=== PATIENT | female | born 1965 | race African-American/Black ===

== ENCOUNTER 2020-07-27 15:48 | Inpatient (IN) | payer OTHER ==
[~2020-07-27] VITALS: Ht 167.6 cm; Wt 94.3 kg
[2020-07-27] MEDS ORDERED: ACET-2605 PO (16:53)
[2020-07-27] MEDS ORDERED: DOCU-141 PO (16:55)
[2020-07-27] MEDS ORDERED: ENOX40DI SQ (16:57)
[2020-07-27] MEDS ORDERED: OXYC5TAB3 PO (17:00)
--- NOTE | 2020-07-27 18:24 | NUR ---
Patient is alert, oriented x4, no sob, resp even nonlabored,skin warm and dry to touch, status post left tibial ORIF, incision site is covered with dressing, left leg is in brace, noted with swelling, non weight bearing on left leg, history of seizures, last seizure in oct, 2019, patient stated she is able to feel aura before seizures. dr amhadi made aware about admission and to recon meds.
[2020-07-27] MEDS: OXYCODONE HCL 5 MG TABLET PO PRN (20:07)
[2020-07-27] MEDS ORDERED: OXYCODONE HCL 5 MG TABLET PO PRN (20:15)
[2020-07-27] MEDS ORDERED: MIRALAX 17 GM POWD.PACK PO PRN (20:15)
[2020-07-27 20:36] VITALS: BP 125/63
[2020-07-28 04:55] VITALS: BP 135/77
--- NOTE | 2020-07-28 06:36 | NUR ---
AxOx4, no acute distress noted. VSS on RA, no SOB noted C/O 5/10 pain in left legt, administered Oxyir PRN, effective. Assisted pt to bedside commode x3. Needs attended too promptly, kept comfortable. Left leg in brace, dressing intact, noted with redness around incision site and swelling, ice applied. Safety measure maintained. will continue to monitor.
[2020-07-28 06:56] LABS: BASOPHILS % (AUTO) 0.4 % (0.0-2.0); EOSINOPHILS # (AUTO) 0.1 K/uL (0.0-0.7); EOSINOPHILS % (AUTO) 1.1 % (0.0-7.0); HEMATOCRIT 31.1 % (31.2-41.9); HEMOGLOBIN 10.5 g/dL (10.9-14.3); LYMPHOCYTES # (AUTO) 2.6 K/uL (20.0-40.0); MEAN CORPUSCULAR HEMOGLOBIN 28.9 uug (24.7-32.8); MEAN CORPUSCULAR HGB CONC 34 g/dL (32.3-35.6); MEAN CORPUSCULAR VOLUME 85.3 fL (75.5-95.3); MONOCYTES # (AUTO) 0.4 K/uL (2.0-10.0); MONOCYTES % (AUTO) 6.2 % (0.0-11.0); NEUTROPHILS # (AUTO) 3.4 K/uL (1.8-8.9); NEUTROPHILS % (AUTO) 52.3 % (38.5-71.5); PLATELET COUNT (AUTO) 301 K/uL (179-408); RED BLOOD CELL COUNT(AUTO) 3.65 MIL/uL (3.63-4.92); WHITE BLOOD COUNT (AUTO) 6.6 K/uL (3.8-11.8)
[2020-07-28 07:26] LABS: THYROID STIMULATING HORMONE 1.664 mIU/mL (0.358-3.740)
[2020-07-28 07:38] LABS: BILIRUBIN,TOTAL 0.5 mg/dL (0.2-1.0); CREATININE 0.9 mg/dL (0.6-1.3); MAGNESIUM 1.9 mg/dL (1.8-2.4); PHOSPHOROUS 4.5 mg/dL (2.5-4.9); TOTAL PROTEIN, SERUM 7.6 g/dL (6.4-8.2)
[2020-07-28 07:43] VITALS: BP 119/64
[2020-07-28] MEDS: TURMERIC ROOT EXTRACT PO SCH (10:02)
[2020-07-28] MEDS: HYALURONIC ACID PO SCH (10:02)
[2020-07-28] MEDS: SAW PALMETTO EXTRACT PO SCH (10:03)
[2020-07-28] MEDS: DOCUSATE SODIUM 100 MG CAPSULE PO SCH ×2 (10:03→17:51)
[2020-07-28] MEDS: ENOXAPARIN SODIUM 40 MG/0.4 ML DISP.SYRIN SQ SCH (10:08)
[2020-07-28] MEDS: OXYCODONE HCL 5 MG TABLET PO PRN ×2 (11:06→18:23)
[2020-07-28 14:54] VITALS: BP 125/72
[2020-07-28 20:00] VITALS: BP 131/75
[2020-07-29] MEDS: ACETAMINOPHEN 325 MG TABLET PO PRN ×2 (00:17→21:52)
[2020-07-29 04:00] VITALS: BP 113/65
[2020-07-29 08:08] VITALS: BP 116/71
[2020-07-29] MEDS: DOCUSATE SODIUM 100 MG CAPSULE PO SCH ×2 (08:48→16:50)
[2020-07-29] MEDS: SAW PALMETTO EXTRACT PO SCH (08:48)
[2020-07-29] MEDS: HYALURONIC ACID PO SCH (08:48)
[2020-07-29] MEDS: TURMERIC ROOT EXTRACT PO SCH (08:48)
[2020-07-29] MEDS: ENOXAPARIN SODIUM 40 MG/0.4 ML DISP.SYRIN SQ SCH (08:54)
[2020-07-29] MEDS: OXYCODONE HCL 5 MG TABLET PO PRN (13:39)
[2020-07-29 20:15] VITALS: BP 128/77
[2020-07-30 04:00] VITALS: BP 137/81
--- NOTE | 2020-07-30 07:30 | NUR ---
Received pt in bed, awake. A&Ox4, able to verbalize needs. No SOB, no s/s of acute distress noted. Pt c/o L tibia pain, per pt wanted to wait until therapy before taking medication. Left leg in brace, dressing intact. Bed low and in locked position, safety measures and fall precautions in place. Belongings and call light within reach. Will continue to monitor.
[2020-07-30 08:00] VITALS: BP 128/70
[2020-07-30] MEDS: TURMERIC ROOT EXTRACT PO SCH (09:33)
[2020-07-30] MEDS: SAW PALMETTO EXTRACT PO SCH (09:33)
[2020-07-30] MEDS: HYALURONIC ACID PO SCH (09:33)
[2020-07-30] MEDS: DOCUSATE SODIUM 100 MG CAPSULE PO SCH ×2 (09:33→16:53)
[2020-07-30] MEDS: ENOXAPARIN SODIUM 40 MG/0.4 ML DISP.SYRIN SQ SCH (09:35)
[2020-07-30] MEDS: OXYCODONE HCL 5 MG TABLET PO PRN ×2 (13:42→21:13)
[2020-07-30 16:00] VITALS: BP 129/78
--- NOTE | 2020-07-30 19:30 | NUR ---
EOSS: Pt sitting in chair, awake and alert. No s/s of acute distress, no complaints of pain/discomfort at this time. Pt able to verbalize needs throughout shift, needs met promptly. Medications and care administered per order, no a/r noted. Pt c/o L leg pain before PT, Oxyir PRN administered per order, effective. Pt tolerated PT well. Safety measures and fall precautions in place. Belongings and call light within reach. Will endorse care to assistant shift supervisor.
[2020-07-30 20:00] VITALS: BP 119/68
[2020-07-31 04:00] VITALS: BP 126/71
--- NOTE | 2020-07-31 04:17 | NUR ---
Received pt at the beginning of shift sitting in the wheelchair. AAO x4. No acute distress noted. Pt slept mostly throughout the shift. Medicated for pain. All needs attended to promptly. Safety measures maintained. Call light and personal items within reach. Will continue to monitor.
[2020-07-31 08:00] VITALS: BP 110/68
[2020-07-31] MEDS: SAW PALMETTO EXTRACT PO SCH (08:54)
[2020-07-31] MEDS: HYALURONIC ACID PO SCH (08:54)
[2020-07-31] MEDS: DOCUSATE SODIUM 100 MG CAPSULE PO SCH ×2 (08:55→18:05)
[2020-07-31] MEDS: TURMERIC ROOT EXTRACT PO SCH (08:55)
[2020-07-31] MEDS: ENOXAPARIN SODIUM 40 MG/0.4 ML DISP.SYRIN SQ SCH (08:56)
[2020-07-31] MEDS: OXYCODONE HCL 5 MG TABLET PO PRN (14:07)
[2020-07-31 16:00] VITALS: BP 126/59
[2020-07-31 20:24] VITALS: BP 131/78
[2020-08-01] MEDS: ACETAMINOPHEN 325 MG TABLET PO PRN (03:16)
[2020-08-01 04:52] VITALS: BP 126/80
--- NOTE | 2020-08-01 06:38 | NUR ---
Shift End Report: Slept well. Medicataed once for left leg pain with relief. No further complaint presented. All needs attended and met. Continue plan of care.
[2020-08-01 07:30] VITALS: BP 153/64
[2020-08-01] MEDS: SAW PALMETTO EXTRACT PO SCH (09:00)
[2020-08-01] MEDS: DOCUSATE SODIUM 100 MG CAPSULE PO SCH ×2 (09:08→16:50)
[2020-08-01] MEDS: ENOXAPARIN SODIUM 40 MG/0.4 ML DISP.SYRIN SQ SCH (09:10)
[2020-08-01] MEDS: FERROUS SULFATE 325 MG TABEC PO SCH (09:11)
[2020-08-01] MEDS: HYALURONIC ACID PO SCH (09:11)
[2020-08-01] MEDS: TURMERIC ROOT EXTRACT PO SCH (09:11)
[2020-08-01] MEDS: OXYCODONE HCL 5 MG TABLET PO PRN ×2 (10:30→21:23)
[2020-08-01 15:09] VITALS: BP 131/74
[2020-08-01 20:03] VITALS: BP 125/78
[2020-08-01 21:49] LABS: *OCCULT BLOOD STOOL NEGATIVE (NEGATIVE)
[2020-08-02 04:53] VITALS: BP 128/71
[2020-08-02 08:00] VITALS: BP 121/82
[2020-08-02] MEDS: HYALURONIC ACID PO SCH (09:08)
[2020-08-02] MEDS: FERROUS SULFATE 325 MG TABEC PO SCH (09:08)
[2020-08-02] MEDS: DOCUSATE SODIUM 100 MG CAPSULE PO SCH ×2 (09:08→17:22)
[2020-08-02] MEDS: TURMERIC ROOT EXTRACT PO SCH (09:08)
[2020-08-02] MEDS: ENOXAPARIN SODIUM 40 MG/0.4 ML DISP.SYRIN SQ SCH (09:09)
[2020-08-02] MEDS: OXYCODONE HCL 5 MG TABLET PO PRN (14:11)
[2020-08-02 16:00] VITALS: BP 124/71
[2020-08-02 20:00] VITALS: BP 118/76
--- NOTE | 2020-08-03 00:32 | NUR ---
AAOx4. Admitted for left tibial ORIF. LLE dressing with knee immobilizer intact. VSS. Denies any pain nor any discomfort. Continent of bowel and bladder. Needs attended. OOB to the BR with walker. NWB on LLE. Will monitor patient.
[2020-08-03 04:00] VITALS: BP 117/66
--- NOTE | 2020-08-03 06:23 | NUR ---
Entered a wrong critical value of K 2.8 to this patient.
--- NOTE | 2020-08-03 06:57 | NUR ---
End of shift notes: Slept @ long intervals. OOB to the BR with walker. Voiding freely. Needs attended. Denies any pain nor any discomfort. Quiet night.
--- NOTE | 2020-08-03 07:40 | NUR ---
Received PT in bed, awake AO X 4. Patient is cooperative and pleasant. Makes needs known to staff. No acute distress or SOB noted. All pertinent information given during report. No complain noted at this time. Continue plan of care. Safety measures provided, call light within reach, bed low and lock. Will continue to monitor.
[2020-08-03 08:00] VITALS: BP 117/87
[2020-08-03] MEDS: TURMERIC ROOT EXTRACT PO SCH (08:55)
[2020-08-03] MEDS: DOCUSATE SODIUM 100 MG CAPSULE PO SCH ×2 (08:56→16:30)
[2020-08-03] MEDS: HYALURONIC ACID PO SCH (08:56)
[2020-08-03] MEDS: FERROUS SULFATE 325 MG TABEC PO SCH (08:56)
[2020-08-03] MEDS: ENOXAPARIN SODIUM 40 MG/0.4 ML DISP.SYRIN SQ SCH (08:58)
[2020-08-03] MEDS: OXYCODONE HCL 5 MG TABLET PO PRN (14:11)
[2020-08-03 14:30] VITALS: BP 113/66
--- NOTE | 2020-08-03 18:11 | NUR ---
PT in bed, awake AO X 4. Patient is cooperative and pleasant. Makes needs known to staff. No acute distress or SOB noted. Pt participated in physical therapy and tolerated it well. PT is independent and able to provide self care. No complain noted at this time. Continue plan of care. Safety measures provided, call light within reach, bed low and lock. Will endorse to kristine shift nurse
[2020-08-03 20:06] VITALS: BP 131/74
--- NOTE | 2020-08-03 21:58 | NUR ---
aaox4. All needs attended. Compliant with meds and care. No acute distress noted. VSS. Left knee dressing clean dry and intact. LLE immobilizer on. Denies any pain nor any discomfort. Tolerated CPM to LLE. Voiding well. Will monitor patient.
[2020-08-04 04:09] VITALS: BP 132/83
--- NOTE | 2020-08-04 07:32 | NUR ---
Received PT in wheelchair in the hallway, awake AO X 4. Patient is cooperative and pleasant. Makes needs known to staff. No acute distress or SOB noted. All pertinent information given during report. No complain noted at this time. Continue plan of care. Safety measures provided, call light within reach, bed low and lock. Will continue to monitor.
[2020-08-04] MEDS: ENOXAPARIN SODIUM 40 MG/0.4 ML DISP.SYRIN SQ SCH (08:29)
[2020-08-04] MEDS: DOCUSATE SODIUM 100 MG CAPSULE PO SCH ×2 (08:30→16:34)
[2020-08-04] MEDS: FERROUS SULFATE 325 MG TABEC PO SCH (08:30)
[2020-08-04] MEDS: HYALURONIC ACID PO SCH (08:34)
[2020-08-04] MEDS: TURMERIC ROOT EXTRACT PO SCH (08:34)
[2020-08-04 12:00] VITALS: BP 106/89
[2020-08-04] MEDS: OXYCODONE HCL 5 MG TABLET PO PRN (13:32)
--- NOTE | 2020-08-04 17:40 | NUR ---
Scheduled [employer]er and return for [facility]'s follow up appointment RE: Post Op Knee Surgery. Date: 08/07/2020 Time: 644 Trip #: [id number] Return #: [id number]
--- NOTE | 2020-08-04 18:14 | NUR ---
PT in bed, awake AO X 4. Patient is cooperative and pleasant. Makes needs known to staff. No acute distress or SOB noted. All pertinent information given during report. No complain noted at this time. Tolerated all therapy activities for the day. PT is aware of transportation for Friday's appointment. PT stated that they are happy and thankful. Continue plan of care. Safety measures provided, call light within reach, bed low and lock. Will endorse to night shift supervisor nurse
[2020-08-04] MEDS: ACETAMINOPHEN 325 MG TABLET PO PRN (20:09)
[2020-08-04 20:31] VITALS: BP 128/78
[2020-08-05 05:41] VITALS: BP 127/80
[2020-08-05] MEDS: OXYCODONE HCL 5 MG TABLET PO PRN ×3 (06:03→12:48)
[2020-08-05 08:00] VITALS: BP 127/81
[2020-08-05] MEDS: DOCUSATE SODIUM 100 MG CAPSULE PO SCH ×2 (09:01→17:31)
[2020-08-05] MEDS: FERROUS SULFATE 325 MG TABEC PO SCH (09:01)
[2020-08-05] MEDS: HYALURONIC ACID PO SCH (09:02)
[2020-08-05] MEDS: TURMERIC ROOT EXTRACT PO SCH (09:02)
[2020-08-05] MEDS: ENOXAPARIN SODIUM 40 MG/0.4 ML DISP.SYRIN SQ SCH (09:05)
[2020-08-05 15:45] VITALS: BP 124/71
--- NOTE | 2020-08-05 18:23 | NUR ---
Patient AOX4. cooperative and pleasant. able to make needs known. No acute distress or SOB noted. No complain noted on this shift. Continue plan of care. Left knee dressing clean, intact and dry. LLE immobilizer on. no pain noted. Tolerated CPM to LLE. Voiding well. Safety measures provided, call light within reach, bed low and lock. Will continue to monitor
[2020-08-05] MEDS: ACETAMINOPHEN 325 MG TABLET PO PRN (20:27)
[2020-08-05 21:23] VITALS: BP 129/78
--- NOTE | 2020-08-05 22:30 | NUR ---
AxOx4, no acute distress noted. VSS on RA, no SOB noted C/O 4/10 pain in left leg, administered TYLENOL PRN, per pt request, effective. Needs attended too promptly, kept comfortable. Left leg in brace, dressing intact. Safety measure maintained. all personal items within pt reach. will continue to monitor.
[2020-08-06 05:28] VITALS: BP 135/84
[2020-08-06 08:00] VITALS: BP 119/72
[2020-08-06] MEDS: FERROUS SULFATE 325 MG TABEC PO SCH (09:07)
[2020-08-06] MEDS: DOCUSATE SODIUM 100 MG CAPSULE PO SCH ×2 (09:07→16:37)
[2020-08-06] MEDS: HYALURONIC ACID PO SCH (09:08)
[2020-08-06] MEDS: TURMERIC ROOT EXTRACT PO SCH (09:08)
[2020-08-06] MEDS: ENOXAPARIN SODIUM 40 MG/0.4 ML DISP.SYRIN SQ SCH (09:55)
[2020-08-06] MEDS: OXYCODONE HCL 5 MG TABLET PO PRN ×3 (13:21→13:45)
--- NOTE | 2020-08-06 13:25 | NUR ---
Patient requesting pain med before scheduled PT, pain 8/10. Will monitor and reassess
[2020-08-06 17:09] VITALS: BP 130/75
--- NOTE | 2020-08-06 18:55 | NUR ---
A&Ox4, vs stable, on RA. No signs of distress, pt resting in bed with laptop. Belongings and call light in reach.
[2020-08-06 20:09] VITALS: BP 123/85
[2020-08-06] MEDS: ACETAMINOPHEN 325 MG TABLET PO PRN (21:59)
[2020-08-07 04:36] VITALS: BP 116/74
[2020-08-07] MEDS: ACETAMINOPHEN 325 MG TABLET PO PRN ×2 (06:29→22:19)
--- NOTE | 2020-08-07 06:47 | NUR ---
End of Shift: Patient is AOx4, no acute distress noted, VS WNL. Patient slept through the night. Bed is low & locked, side rails are up x2, call light within reach. Patient will be picked up by Em around 6:45am and taken to [facility] for her follow up appt with her surgeon. After the appt the patient will return to [facility] via [facility]. Order for a pt pass was input into chart. Will endorse to the AM shift nurse.
--- NOTE | 2020-08-07 07:22 | NUR ---
Received pt on gurdivide with [facility] staff. Pt being transported by [facility] to [facility], pass in chart. Pt in no acute distress, no SOB. Will await pt's return to unit.
[2020-08-07] MEDS: FERROUS SULFATE 325 MG TABEC PO SCH (11:05)
[2020-08-07] MEDS: DOCUSATE SODIUM 100 MG CAPSULE PO SCH ×2 (11:05→17:06)
--- NOTE | 2020-08-07 11:05 | NUR ---
Pt back on unit from [facility]. A&Ox4, able to verbalize needs. No acute distress, no complaints of pain/discomfort. On RA, no SOB. VSS. 0900 medications delayed d/t pt being off unit, administered per order upon pt's return. Safety measures and fall precautions in place. Will continue to monitor.
[2020-08-07] MEDS: TURMERIC ROOT EXTRACT PO SCH (11:06)
[2020-08-07] MEDS: HYALURONIC ACID PO SCH (11:06)
[2020-08-07] MEDS: ENOXAPARIN SODIUM 40 MG/0.4 ML DISP.SYRIN SQ SCH (11:07)
[2020-08-07] MEDS: OXYCODONE HCL 5 MG TABLET PO PRN (13:30)
[2020-08-07 15:11] VITALS: BP 122/76
--- NOTE | 2020-08-07 19:02 | NUR ---
EOSS: Pt in bed, awake. No s/s of acute distress, no complaints at this time. Needs met promptly during shift. Medications and care administered per order, no a/r noted. Pt c/o L leg pain before PT, Oxyir PRN administered per order, effective. Safety measures in place. Belongings and call light within reach. Will endorse care to pick pack worker.
[2020-08-07 20:45] VITALS: BP 136/80
--- NOTE | 2020-08-07 23:00 | NUR ---
AxOx4, no acute distress noted. VSS on RA, no SOB noted C/O 4/10 pain in left leg, administered TYLENOL PRN, per pt request, effective. Needs attended too promptly, kept comfortable. Left leg incision site open to air with steri strips intact. Safety measure maintained. All personal items within pt reach. will continue to monitor.
[2020-08-08 04:30] VITALS: BP 118/63
[2020-08-08] MEDS: ACETAMINOPHEN 325 MG TABLET PO PRN ×2 (06:14→23:33)
--- NOTE | 2020-08-08 07:30 | NUR ---
Received pt awake, alert, able to verbalize needs. No acute distress noted, no complaints at this time. Surgical incision on LLE open to air, steri strips intact. Safety measures in place. Belongings and call light within reach. Will continue to monitor.
[2020-08-08 07:56] VITALS: BP 110/66
[2020-08-08 08:37] LABS: *BILIRUBIN,URIN NEGATIVE (NEGATIVE); *BLOOD, URINE NEGATIVE (NEGATIVE); *CLARITY,URINE SLIGHTLY CLOUDY (CLEAR); *COLOR,URINE YELLOW (YELLOW); *KETONES,URINE NEGATIVE (NEGATIVE); *UROBILINOGEN,URINE 0.2 E.U./dl (NORMAL); LEUKOCYTE ESTERASE ,URINE NEGATIVE (NEGATIVE); NITRITE, URINE NEGATIVE (NEGATIVE); UGLUCOSE NEGATIVE (NEGATIVE)
[2020-08-08] MEDS: FERROUS SULFATE 325 MG TABEC PO SCH (09:30)
[2020-08-08] MEDS: DOCUSATE SODIUM 100 MG CAPSULE PO SCH ×2 (09:30→17:03)
[2020-08-08] MEDS: HYALURONIC ACID PO SCH (09:31)
[2020-08-08] MEDS: TURMERIC ROOT EXTRACT PO SCH (09:31)
[2020-08-08] MEDS: ENOXAPARIN SODIUM 40 MG/0.4 ML DISP.SYRIN SQ SCH (09:32)
[2020-08-08 12:21] LABS: CREATININE 0.9 mg/dL (0.6-1.3); POTASSIUM 3.8 mmol/L (3.5-5.1)
[2020-08-08 12:22] LABS: BASOPHILS % (AUTO) 0.7 % (0.0-2.0); EOSINOPHILS # (AUTO) 0.1 K/uL (0.0-0.7); EOSINOPHILS % (AUTO) 1.3 % (0.0-7.0); HEMATOCRIT 35.3 % (31.2-41.9); HEMOGLOBIN 11.8 g/dL (10.9-14.3); LYMPHOCYTES % (AUTO) 37.7 % (20.5-51.5); MEAN CORPUSCULAR HEMOGLOBIN 28.7 uug (24.7-32.8); MEAN CORPUSCULAR HGB CONC 33 g/dL (32.3-35.6); MEAN CORPUSCULAR VOLUME 86.1 fL (75.5-95.3); MONOCYTES # (AUTO) 0.4 K/uL (2.0-10.0); MONOCYTES % (AUTO) 7.7 % (0.0-11.0); NEUTROPHILS # (AUTO) 2.8 K/uL (1.8-8.9); NEUTROPHILS % (AUTO) 52.6 % (38.5-71.5); PLATELET COUNT (AUTO) 289 K/uL (179-408); WHITE BLOOD COUNT (AUTO) 5.3 K/uL (3.8-11.8)
[2020-08-08 12:41] LABS: BACTERIA,URINE NONE SEEN /HPF (NONE SEEN); RBC,URINE NONE SEEN /HPF (0-3); SQUAMOUS EPITHELIAL CELL,UR FEW /HPF (NONE SEEN); WBC,URINE NONE SEEN /HPF (0-3)
[2020-08-08] MEDS: OXYCODONE HCL 5 MG TABLET PO PRN (13:56)
[2020-08-08 14:33] VITALS: BP 137/71
--- NOTE | 2020-08-08 19:30 | NUR ---
EOSS: Pt awake, alert, no acute distress, no complaints. Medications and care administered per order, no a/r noted. Safety measures in place. Belongings and call light within reach. Will endorse care to night nurse.
[2020-08-08 20:00] VITALS: BP 134/77
--- NOTE | 2020-08-09 | NUR ---
AxOx4, no acute distress noted. VSS on RA, no SOB noted C/O mild 4/10 pain in left leg, administered TYLENOL PRN, per pt request, effective. Needs attended too promptly, kept comfortable. Left leg incision site open to air with steri strips intact. Safety measure maintained. All personal items within pt reach. will continue to monitor.
[2020-08-09 04:00] VITALS: BP 124/69
--- NOTE | 2020-08-09 07:40 | NUR ---
Pt recieved in bed, no acute distress. No complaints able to make needs known. sterri strips intact. AOx4 on room air, saftey measures in place. call light in reach. Will continue to monitor.
[2020-08-09] MEDS: ACETAMINOPHEN 325 MG TABLET PO PRN ×2 (07:57→21:33)
[2020-08-09 08:00] VITALS: BP 127/84
[2020-08-09] MEDS: FERROUS SULFATE 325 MG TABEC PO SCH (09:20)
[2020-08-09] MEDS: DOCUSATE SODIUM 100 MG CAPSULE PO SCH ×2 (09:20→17:27)
[2020-08-09] MEDS: HYALURONIC ACID PO SCH (09:20)
[2020-08-09] MEDS: TURMERIC ROOT EXTRACT PO SCH (09:20)
[2020-08-09] MEDS: ENOXAPARIN SODIUM 40 MG/0.4 ML DISP.SYRIN SQ SCH (09:21)
[2020-08-09] MEDS: OXYCODONE HCL 5 MG TABLET PO PRN (11:16)
[2020-08-09 16:23] VITALS: BP 128/76
--- NOTE | 2020-08-09 18:34 | NUR ---
ELADIA Pt is left in bed comfortable. Routine meds given. Pt was complaining about seeing blood in her stool, was notified. Pts needs were met. On room air, safety measures in place. call light in reach, will Endorse to oncoming nurse Addendum: 08/09/20 at 1852 by MALKA PISANO LVN ordered to hold [facility] am
--- NOTE | 2020-08-09 19:40 | NUR ---
Awake, sitting on top of her bed. Calm, jolly, watching TV at this time. Denies any pain/discomforts. Left leg brace not in used. Steri-strips on affected leg dry and intact. Safety measures and fall prevention maintained. Continue care as planned.
[2020-08-09 20:00] VITALS: BP 115/69
[2020-08-10 04:00] VITALS: BP 118/70
--- NOTE | 2020-08-10 06:47 | NUR ---
Shift End Report: Slept well. Medicated once with Tylenol for discomfort, effective. No further complaint presented. Continue current rehab plan of care.
[2020-08-10] MEDS: ACETAMINOPHEN 325 MG TABLET PO PRN (08:07)
[2020-08-10] MEDS: TURMERIC ROOT EXTRACT PO SCH (08:07)
[2020-08-10] MEDS: DOCUSATE SODIUM 100 MG CAPSULE PO SCH ×2 (08:07→17:03)
[2020-08-10] MEDS: FERROUS SULFATE 325 MG TABEC PO SCH (08:07)
[2020-08-10] MEDS: HYALURONIC ACID PO SCH (08:07)
[2020-08-10 08:51] VITALS: BP 121/77
[2020-08-10] MEDS: OXYCODONE HCL 5 MG TABLET PO PRN (14:38)
--- NOTE | 2020-08-10 16:50 | NUR ---
PATIENT SCHEDULED TO BE DISCHARGED. VSS. BELONGINGS RETURNED TO PATIENT. BELONGINGS LIST VERIFIED AND SIGNED BY PATIENT. DISCHARGE INSTRUCTIONS DISCUSSED. PATIENT VERBALIZED UNDERSTANDING. DENIES PAIN AT THIS TIME. NO S/S OF DISTRESS NOTED.
--- NOTE | 2020-08-10 17:36 | NUR ---
PICKED UP VIA PRIVATE TRANSPORT. ID BAND REMOVED. NO S/S OF DISTRESS OR SOB NOTED.
== END 2020-08-10 17:36 | disposition home health service (06) | DRG 560 ==
PROVIDERS: ADMIT Physical Medicine & Rehabilitation Pain Medicine; ATTEND Physical Medicine & Rehabilitation Pain Medicine
DX: S82.142D Displaced bicondylar fracture of left tibia, subsequent encounter for closed fracture with routine healing (principal); D68.59 Other primary thrombophilia; W18.30XD Fall on same level, unspecified, subsequent encounter; D50.9 Iron deficiency anemia, unspecified; D63.8 Anemia in other chronic diseases classified elsewhere; E66.9 Obesity, unspecified; R26.89 Other abnormalities of gait and mobility; G40.909 Epilepsy, unspecified, not intractable, without status epilepticus; Z68.33 Body mass index [BMI] 33.0-33.9, adult; Z88.1 Allergy status to other antibiotic agents
CPT/HCPCS: 36415; 73590; 83550; 83735; 84100; 84443; 85025; J1650